=== PATIENT | male | born 1980 | race African-American/Black ===

== ENCOUNTER 2018-06-27 22:42 | Emergency (ER) | payer BC ==
[~2018-06-27] VITALS: Ht 193 cm; Wt 81.6 kg
[2018-06-27 22:49] VITALS: BP 126/81
--- NOTE | 2018-06-27 22:52 | NUR ---
TO BED # 07 AMBULATORY , REPORT GIVEN TO TOMÁS MOE
[2018-06-27] MEDS ORDERED: LIDOCAINE 1% 500 MG/50 ML VIAL INJ SCH (22:55)
[2018-06-27] MEDS ORDERED: LIDOCAINE MPF 1% 5mL VIAL ONE ×2 (23:29→23:30)
[2018-06-27] MEDS ORDERED: IBUPROFEN 800 MG TAB PO ONE (23:45)
--- NOTE | 2018-06-27 23:52 | NUR ---
NON-ADHERENT PAD APPLIED TO PATIENTS WOUND SITE BETWEEN BUTTOCKS.
--- NOTE | 2018-06-28 00:08 | NUR ---
PT DISCHARGED WITH STABLE VS, AXOX4 AND AMBULATORY WITH STEADY GATE. VERBAL AND WRITTEN DISCHARGE INSTRUCTIONS GIVEN, PT VERBALIZES UNDERSTANDING OF HOME CARE AND PRESCRIPTIONS. PT DENISES ANY QUESTIONS AND VERBALIZES UNDERSTANDING AT THIS TIME.
[2018-06-28 00:11] VITALS: BP 124/78
== END 2018-06-28 00:05 | disposition home or self-care (01) ==
LOC: MED 22:42
DX: L02.31 Cutaneous abscess of buttock (principal)
CPT/HCPCS: 10060; 99283; J2001